=== PATIENT | male | born 1990 | race Caucasian/White ===

== ENCOUNTER 2016-12-05 21:53 | Emergency (ER) | payer MEDICAID, OTHER ==
[2016-12-05] MEDS ORDERED: KETOROLAC 60 MG/2 ML VIAL IM ONE (23:46)
[2016-12-05] MEDS ORDERED: ACETAMINOPHEN 325 MG TAB ONE (23:46)
== END 2016-12-06 00:36 | disposition home or self-care (01) ==
LOC: ER 21:53
CPT/HCPCS: 72100; 96372